=== PATIENT | male | born 2005 | race Caucasian/White ===

== ENCOUNTER 2025-06-05 08:46 | Outpatient (AMB) | payer OTHER, MEDICARE, MEDICAID, SELFPAY ==
--- NOTE | 2025-06-05 08:47 | MHC.PC.OV ---
Vital Signs 06/05/25 09:05 06/05/25 09:47 Height 5 ft 9 in Weight 371 lb 7.662 oz BMI 54.9 BP 124/72 Blood Pressure Location Lt brachial Position Sitting Respiration 12 Pulse 103 H 88 Pulse Source Pulse Oximeter Auscultation Temp 96.8 F Temp Source Oral Pulse Oximetry (%) 96 Oxygen Delivery Method Room Air Intake Visit Reasons: Autism/CPE Intake Note: New patient to establish care and cpe. Managing Manager Required: No Allergies sulfamethoxazole (From Bactrim) Allergy (Severe, Verified 06/05/25 09:28) Hives trimethoprim (From Bactrim) Allergy (Severe, Verified 06/05/25 09:28) Hives Medication List - Last Reviewed 06/05/25 by Hazel Anaya MA aripiprazole (Abilify) 5 mg PO DAILY clonidine HCl 0.2 mg PO BEDTIME clonidine HCl 0.3 mg PO BEDTIME hydroxyzine pamoate 100 mg PO BID PRN lorazepam 0.5 mg PO BID PRN methylphenidate HCl ER 72 mg PO QAM omeprazole 20 mg PO DAILY oxcarbazepine 600 mg PO BID oxcarbazepine 300 mg PO BID risperidone 1 mg PO BEDTIME trazodone 300 mg PO BEDTIME venlafaxine ER 75 mg PO DAILY venlafaxine ER 150 mg PO DAILY venlafaxine ER (Effexor XR) 37.5 mg PO DAILY Tobacco use date assessed: 06/05/25 Dental Screening Dental Screen Date: 06/05/25 Did you have a dental visit in the last 12 months?: Yes Did you have a dental problem in the last 6 months where you did not have access to dental care?: No Was dental information given to patient?: Patient has dentist HPI HPI Comments History of Present Illness Details 19 y/o M with autism, ELISHA, ADHD,obesity, HLD, Mild intermittent asthma, Tic disorder, Hyperinsulinemia, GERD, obesity s/p s/p R labral tear surgery Fhx: Mom ELISHA, MDD, DAd DM, HLD HTN, Brother ELISHA, MDD, MGF/MGM premature heart dz; MGM lung ca Social: goes to [employer] in [place] 3 days a week; lives w/ Mom, Dad and oldest son; likes video games and movies Health Maintenance Tdap 06/05/25 Flu 06/05/25 Specialist: Optho wears glasses Counselor and prescriber Here today to [facility] care & for CPE Pediatric records rec'd and reviewed. Here with Mom, [facility] bothering him. 06/28/25 eye doc appt Dry skin of bilat feet. Bilat foot pain Obesity - was seeing specialists but no longer followed; walking ELISHA/MDD/ADHD/Autism: PCP is not prescribing any of his meds; [facility] is managing all of these. GERD well controlled on PPI ASthma well controlled on prn RED Social History - Resides with father and eldest brother - Attends a day program, [employer] in [place], three days a week, which includes activities such as swimming and exercise. - Involved in walking therapy and has achieved long-distance walking with a therapist. - Reports dietary modifications that include increased fruit intake and significant reduction in ice cream and chip consumption. Health Maintenance - Influenza vaccine administered during the visit - Tetanus shot updated during the visit - Patient informed of [facility] use for appointment scheduling and communication Review of Systems - Eyes: Reports discomfort and pain in left eye - Dermatological: Reports burning sensation and thickened skin on feet - Musculoskeletal: Reports right shoulder discomfort but reassured by metallic implant - Neurological: Denies current seizures but has a history of tic disorder - Allergic/Immunologic: Allergy to Bactrim with hives reaction previously noted - Urinary: Reports sensation of prolonged urination Physical Exam General: Well developed, well nourished, in no acute distress. Appears stated age. Head: Normocephalic, atraumatic. Eyes:Pupils are equal, round and reactive to light and accommodation. Conjunctivae are clear. Scleras nonicteric bilat. Vision grossly normal. Glasses. Tearing of L eye, he could not tolerate exam so not able to assess. Ears: TMs clear AU, EACS WNL Nose: Patent, without discharge. Neck: No carotid bruit bilat. Supple, no adenopathy or thyromegaly. Breast: Edu on SBE Lungs: Clear to auscultation bilaterally. No rales, rhonchi or wheeze noted. Good air flow in all linares. Heart: Regular rate and rhythm. No murmurs, click, rubs or gallops are noted. Abdomen: Bowel sounds present in all quadrants. The abdomen is soft, nontender, with no masses or organomegaly noted. No hernias are noted. : Deferred. Reviewed KATERYNA & recommendations Pulses: Peripheral pulses are equal and palpable bilaterally. Extremities: No clubbing, cyanosis nor edema is noted. Skin on feet is thickened, possibly due to sitting cross-legged. Neurologic: Gait and station normal. Cranial Nerves 2-12 intact. Motor strength grossly symmetrical and intact. No sensory loss. Balance normal. Skin: No rashes, ulcers, or lesions noted. Turgor is good. Skin color is good. Hair and nails are without abnormalities. Thickened to lateral part of foot bilat Psych: Normal eye contact, affect and mood appropriate, and normal interactions. Patient is alert and appropriate to context. Results Pending Discussion Notes I discussed the likely diagnosis of a corneal scratch on the left eye, requiring prompt ophthalmological evaluation for further assessment and management. We addressed the chronic issues of obesity by reinforcing healthy dietary habits and encouraging continued physical activity. Lac-hydryin lotion was recommended for foot care to address the thickened skin ({mom has on hand @ home). Vaccinations updated today include the Influenza vaccine and Tetanus shot. The patient was educated about using the [facility] for communication and follow-up appointments. Additionally, we discussed the historical allergy to Bactrim and reinforced avoidance. Consent was obtained for today's vaccines and non-fasting lab work. Patient was given time to ask questions. All questions were answered to their satisfaction. Assessment and Plan 1. Eye Discomfort, L - recommend ophthalmology follow-up. Call to move up appt 2. Skin Condition of the Feet - Use Lac hydrin lotion BID; consider dermatology if necessary. 3. Obesity and Activity - Encourage healthy diet and exercise. 4.ELISHA, MDD, ADHD, Autism Cont care w/ counselor and prescriber 5. HM: Tdap, flu and labs today Patient Instructions - Drink plenty of water every day. - Use lachydrin lotion on your feet twice a day. - Eat more fruits and less junk food like chips and ice cream. - Walk regularly as exercise. - Contact your eye doctor soon to check your left eye. - Always tell doctors about your allergy to Bactrim. - Get your blood work done today before leaving. - RTO 1 year CPE sooner as needed. Consent Patient was informed and verbally consented to the use of an ambient scribe for clinic note documentation during this visit. An additional 30 minutes was spent addressing the problem(s) noted at todays visit. This includes time spent before the visit reviewing the chart, time spent during the visit, and time spent after the visit on documentation reviewing laboratory results, diagnostic imaging, medications, performing a medically necessary evaluation, counseling on diagnoses, care coordination, ordering appropriate tests, ordering appropriate medications, review of tests performed by other providers, reporting test results with the patient, communication with other healthcare providers. [facility] Medical History (Updated 06/05/25 @ 09:53 by Merissa Lake [facility]) Anxiety and depression Surgical History (Updated 06/05/25 @ 08:49 [facility] Status post labral repair of shoulder Family History (Updated 06/05/25 @ 09:17 by Hazel Anaya MA) Maternal Aunt No problems noted. Mother Asthma HTN (hypertension) High cholesterol Father HTN (hypertension) High cholesterol Diabetes Cardiovascular disease Maternal Grandfather Diabetes Social History (Updated 06/05/25 @ 09:10 by Hazel Anaya MA) Household Members: Family Household Members Other:: mother, father and brothers Both parents involved: Yes Caregiver staying overnight: No Housing: House Are you a primary neonatal intensive care unit nurse to a significant other at home: No Do you presently have visiting nurse or other home services: No 75 years or older and lives alone: No Alcohol intake: never Patient Tobacco Use Status: Never used Tobacco e-Cigarette/Vaping Use: Never Used Second Hand Smoke Exposure: No service: No Current occupational status: disabled Cognitive needs: No Hearing needs: No Vision needs: Yes (wear glasses) Questionnaire PHQ-9 Over the last 2 weeks, how often have you been bothered by any of the following problems? 1. Little interest or pleasure in doing things: not at all 2. Feeling down, depressed, or hopeless: not at all 3. Trouble falling or staying asleep, or sleeping too much: not at all 4. Feeling tired or having little energy: not at all 5. Poor appetite or overeating: not at all 6. Feeling bad about yourself - or that you are a failure or have let yourself or your family down: not at all 7. Trouble concentrating on things, such as reading the newspaper or watching television: not at all 8. Moving or speaking so slowly that other people could have noticed. Or the opposite - being so fidgety or restless that you have been moving around a lot more than usual: not at all 9. Thoughts that you would be better off or of hurting yourself in some way: not at all Total score: 0 Depression Screening Interpretation: Negative Depression Screening Done: Yes 54209 - PHQ-9 Billing: Yes Source: Developed by Drs. Ricardo Helton, Marisol Perez, Adam Kaminski and colleagues, with an educational taryn from [employer]. Thrive Questionnaire Date Thrive assessed: 06/05/25 I am a: Parent/Caregiver What is your living situation today?: I have a steady place to live Within the past 12 months, did the food you bought not last and you didn't have the money to get more?: Never true Within the past 12 months, did you worry whether your food would run out before you got money to buy more?: Never true Do you have trouble paying for medicines?: No Do you have trouble getting transportation to medical appointments?: Yes Do you have trouble paying your heating and electricity bill?: No Do you have trouble taking care of your child, family member or friend?: No Do you have trouble with day-to-day activities such as bathing, preparing meals, shopping, managing finances, etc.?: Yes Are you currently unemployed and looking for a job?: No Are you interested in more education?: No Please select the resources that you would like help with: Transportation Currently or been in a relationship where the following occur: No concerns reported THRIVE Score: 1 AUDIT C Alcohol Use Questionnaire (AUDIT-C) 1. How often do you have a drink containing alcohol?: Never 3. How often do you have six or more drinks on one occasion?: Never Total Score: 0 Score Reviewed/Action Taken: Yes ELISHA-7 AMB Questionnaire ELISHA-7 Date ELISHA - 7 assessed: 06/05/25 Feeling nervous, anxious, or on edge: 3 = Nearly every day Not being able to stop or control worryin = Nearly every day Worrying too much about different things: 3 = Nearly every day Trouble relaxin = Nearly every day Being so restless that it is hard to sit still: 0 = Not at all Becoming easily annoyed or irritable: 3 = Nearly every day Feeling afraid as if something awful might happen: 3 = Nearly every day Total ELISHA-7 score (0-4 normal; 5-9 mild; 10-14 moderate; 15-21 severe): 18 Source: Developed by Drs. Ricardo Helton, Marisol Perez, Adam Kaminski and colleagues, with an educational taryn from [employer]. ELISHA-7 Assessment Billing ELISHA-7 Assessment Tool: ELISHA-7 Assessment 80330 ACT Questionnaire In the past 4 weeks, how much of the time did your asthma keep you from getting as much done at work, school or at home?: None of the time During the past 4 weeks, how often have you had shortness of breath?: Not at all During the past 4 weeks, how often did your asthma symptoms wake you up at night or earlier than usual in the morning?: Not at all During the past 4 weeks, how often have you had to use your rescue inhaler or nebulizer medication?: Not at all How would you rate your asthma control during the past 4 weeks?: Completely controlled ACT Interpretation: Negative Score: 25 Physical exam (Primary Care) Vital Signs: Last Vital Signs Temp 96.8 F 06/05/25 09:05 Pulse 88 06/05/25 09:47 Resp 12 06/05/25 09:05 BP 124/72 06/05/25 09:05 Pulse Ox 96 06/05/25 09:05 Oxygen Delivery Method Room Air 06/05/25 09:05 BMI result Body Mass Index 54.9 BMI Assessment/Plan discussion: High BMI High, discussed plan: lifestyle Tobacco/Smoking Status: Tobacco use Status Tobacco use date assessed 06/05/25 06/05/25 09:00 Patient Tobacco Use Status Never used Tobacco 06/05/25 09:10 e-Cigarette/Vaping Use Never Used 06/05/25 09:10 PHQ-9: PHQ-9 Score PHQ-9: Total score 0 06/05/25 09:32 Depression Screening Interpretation: Negative Thrive Assessment: Date of Thrive Assessment Date Thrive assessed 06/05/25 06/05/25 09:00 Currently or been in a relationship where the following occur: No concerns reported Coding Level of Care Code New Pt Level 3 (91345) New Pt Prev Care 18-39yr(14211 Diagnoses Encounter to establish care with new provider Z76.89 Autism F84.0 ELISHA (generalized anxiety disorder) F41.1 Attention deficit hyperactivity disorder (ADHD), predominantly hyperactive type F90.1 Attention deficit-hyperactivity disorder type: predominantly hyperactive Mixed hyperlipidemia E78.2 Hyperlipidemia type: mixed hyperlipidemia Mild intermittent asthma in adult without complication J45.20 Tic disorder F95.9 Hyperinsulinemia E16.1 Gastroesophageal reflux disease without esophagitis K21.9 Esophagitis presence: without esophagitis Influenza vaccination administered at current visit Z23 Need for Tdap vaccination Z23 Laboratory exam ordered as part of routine general medical examination Z00.00 BMI 50.0-59.9, adult Z68.43 Irritation of left eye H57.89 Encounter for general adult medical examination without abnormal findings Z00.00 Additional Codes Asthma Control Questionnaire - ACT Interpretation: Negative ([id number]) ELISHA-7 Assessment Billing - ELISHA-7 Assessment Tool: ELISHA-7 Assessment 77773 ([id number]) PHQ-9 - 30326 - PHQ-9 Billing: Yes ([id number]) Assessment & Plan Assessment & Plan (1) Encounter to establish care with new provider: Code(s): Z76.89 - Persons encountering health services in other specified circumstances (2) Autism: Code(s): F84.0 - Autistic disorder Category: Medical (3) ELISHA (generalized anxiety disorder): Code(s): F41.1 - Generalized anxiety disorder Category: Medical (4) ADHD: Code(s): F90.9 - Attention-deficit hyperactivity disorder, unspecified type Category: Medical Qualifiers: Attention deficit-hyperactivity disorder type: predominantly hyperactive Qualified Code(s): F90.1 - Attention-deficit hyperactivity disorder, predominantly hyperactive type (5) HLD (hyperlipidemia): Code(s): E78.5 - Hyperlipidemia, unspecified Category: Medical Qualifiers: Hyperlipidemia type: mixed hyperlipidemia Qualified Code(s): E78.2 - Mixed hyperlipidemia (6) Mild intermittent asthma in adult without complication: Code(s): J45.20 - Mild intermittent asthma, uncomplicated Category: Medical (7) Tic disorder: Code(s): F95.9 - Tic disorder, unspecified Category: Medical (8) Hyperinsulinemia: Code(s): E16.1 - Other hypoglycemia Category: Medical (9) GERD (gastroesophageal reflux disease): Code(s): K21.9 - Gastro-esophageal reflux disease without esophagitis Category: Medical Qualifiers: Esophagitis presence: without esophagitis Qualified Code(s): K21.9 - Gastro-esophageal reflux disease without esophagitis (10) Influenza vaccination administered at current visit: Code(s): Z23 - Encounter for immunization Category: Medical (11) Need for Tdap vaccination: Code(s): Z23 - Encounter for immunization Category: Medical (12) Laboratory exam ordered as part of routine general medical examination: Code(s): Z00.00 - Encounter for general adult medical examination without abnormal findings Category: Medical (13) BMI 50.0-59.9, adult: Code(s): Z68.43 - Body mass index [BMI] 50.0-59.9, adult Category: Medical (14) Irritation of left eye: Code(s): H57.89 - Other specified disorders of eye and adnexa (15) Encounter for general adult medical examination without abnormal findings: Onset Date: ~06/05/25 Code(s): Z00.00 - Encounter for general adult medical examination without abnormal findings Category: Medical Plan . Orders: Orders Comprehensive Met. Panel Today E78.5 - Hyperlipidemia, unspecified, Z00.00 - Encounter for general adult medical examination without abnormal findings, Z68.43 - Body mass index [BMI] 50.0-59.9, adult Hemoglobin A1c Today E78.5 - Hyperlipidemia, unspecified, Z00.00 - Encounter for general adult medical examination without abnormal findings, Z68.43 - Body mass index [BMI] 50.0-59.9, adult Lipid Panel Today E78.5 - Hyperlipidemia, unspecified, Z00.00 - Encounter for general adult medical examination without abnormal findings, Z68.43 - Body mass index [BMI] 50.0-59.9, adult TSH reflex Free T4 Today E78.5 - Hyperlipidemia, unspecified, Z00.00 - Encounter for general adult medical examination without abnormal findings, Z68.43 - Body mass index [BMI] 50.0-59.9, adult Vitamin B12 and Folate Today E78.5 - Hyperlipidemia, unspecified, Z00.00 - Encounter for general adult medical examination without abnormal findings, Z68.43 - Body mass index [BMI] 50.0-59.9, adult Vitamin D 25-OH Total Today E78.5 - Hyperlipidemia, unspecified, Z00.00 - Encounter for general adult medical examination without abnormal findings, Z68.43 - Body mass index [BMI] 50.0-59.9, adult Complete Blood Count no Diff Today E78.5 - Hyperlipidemia, unspecified, Z00.00 - Encounter for general adult medical examination without abnormal findings, Z68.43 - Body mass index [BMI] 50.0-59.9, adult Microalbumin, Random (w Creat) Today E78.5 - Hyperlipidemia, unspecified, Z00.00 - Encounter for general adult medical examination without abnormal findings, Z68.43 - Body mass index [BMI] 50.0-59.9, adult TDaP Immunization Today Z23 - Encounter for immunization Influenza 3467-0012 Immunization Today Z23 - Encounter for immunization Medications: New Boostrix Tdap (diphth,pertus(acell),tetanus) 0.5 mL IM ONCE 0.5 mL 0RF NS Z23 - Encounter for immunization Fluarix 5621-9930 (PF) (flu vac ts (6mos up)-PF) 0.5 mL IM ONCE 0.5 mL 0RF NS Z23 - Encounter for immunization Patient Instructions: Health screenings for men You should visit your health care provider regularly, even if you feel healthy. The purpose of these visits is to: Screen for medical issues Assess your risk for future medical problems Encourage a healthy lifestyle Update vaccinations and other preventive care services Help you get to know your provider in case of an illness Information Even if you feel fine, you should still see your provider for regular checkups. These visits can help you avoid problems in the future. For example, the only way to find out if you have high blood pressure is to have it checked regularly. High blood sugar and high cholesterol level also may not have any symptoms in the early stages. Simple blood tests can check for these conditions. There are specific times when you should see your provider or receive specific health screenings. The [place] Preventive Services Task Force publishes a list of recommended screenings. Below are screening guidelines for men ages 40 to 64. BLOOD PRESSURE SCREENING Have your blood pressure checked at least once every year. Watch for blood pressure screenings in your area. Ask your provider if you can stop in to have your blood pressure checked. Ask your provider if you need your blood pressure checked more often if: You have diabetes, heart disease, kidney problems, or are overweight or have certain other health conditions You have a first-degree relative with high blood pressure You are Black Your blood pressure top number is from 120 to 129 mm Hg, or the bottom number is from 70 to 79 mm Hg If the top number is 130 mm Hg or greater or the bottom number is 80 mm Hg or greater, this is considered stage 1 hypertension. Schedule an appointment with your provider to learn how you can lower your blood pressure. Effects of age on blood pressure CHOLESTEROL SCREENING Cholesterol screening should begin at age 35 for men with no known risk factors for coronary heart disease. Repeat cholesterol screening should take place: Every 5 years for men with normal cholesterol levels More often if changes occur in lifestyle (including weight gain and diet) More often if you have diabetes, heart disease, kidney problems, or certain other conditions COLORECTAL CANCER SCREENING If you are under age 45, talk to your provider about getting screened. You may need to be screened if you have a strong family history of colon cancer or polyps. Screening may also be considered if you have risk factors such as a history of inflammatory bowel disease or polyps. If you are age 45 to 75, you should be screened for colorectal cancer. There are several screening tests available: A stool-based fecal occult blood (gFOBT) or fecal immunochemical test (FIT) every year A stool sDNA test every 1 to 3 years Flexible sigmoidoscopy every 5 years or every 10 years with stool testing FIT done every year CT colonography (virtual colonoscopy) every 5 years Colonoscopy every 10 years You may need a colonoscopy more often if you have risk factors for colorectal cancer, such as: Ulcerative colitis A personal or family history of colorectal cancer A history of growths in your colon called adenomatous polyps DENTAL EXAM Go to the dentist once or twice every year for an exam and cleaning. Your dentist will evaluate if you have a need for more frequent visits. DIABETES SCREENING All adults who do not have risk factors for diabetes should be screened starting at age 35 and repeated every 3 years. If you have other risk factors for diabetes, such as a first degree relative with diabetes, overweight or obesity, high blood pressure, prediabetes, or a history of heart disease, you may be tested more often. If you are overweight and have other risk factors, such as high blood pressure and are planning to become , screening is recommended. EYE EXAM Have an eye exam every 2 to 4 years ages 40 to 54 and every 1 to 3 years ages 55 to 64. Your provider may recommend more frequent eye exams if you have vision problems or glaucoma risk. Have an eye exam that includes an examination of your retina (back of your eye) at least every year if you have diabetes. IMMUNIZATIONS Commonly needed vaccines include: Flu shot: get one every year COVID-19 vaccine: ask your provider what is best for you Tetanus-diphtheria and acellular pertussis (Tdap) vaccine: have as one of your tetanus-diphtheria vaccines if you did not receive it as an adolescent Tetanus-diphtheria: have a booster (or Tdap) every 10 years Varicella vaccine: receive 2 doses if you never had chickenpox or the varicella vaccine and were born in 1979 or after Hepatitis B vaccine: receive 2, 3, or 4 doses, depending on your exact circumstances, if you did not receive these as a child or adolescent, until age 59 Shingles (herpes zoster) vaccine: at or after age 50 Ask your provider if you should receive other immunizations, especially if you have certain medical conditions, such as diabetes or are at increased risk for some diseases such as pneumonia. INFECTIOUS DISEASE SCREENING Screening for hepatitis C: all adults ages 18 to 79 should get a one-time test for hepatitis C. Screening for human immunodeficiency virus (HIV): all people ages 15 to 65 should get a one-time test for HIV. Depending on your lifestyle and medical history, you may need to be screened for infections such as syphilis, chlamydia, and other infections. LUNG CANCER SCREENING You should have an annual screening for lung cancer with low-dose computed tomography (LDCT) if: You are age 50 to 80 years AND You have a 20 pack-year smoking history AND You currently smoke or have quit within the past 15 years OSTEOPOROSIS SCREENING If you are age 50 to 64 and have risk factors for osteoporosis, you should discuss screening with your provider. Risk factors can include long-term steroid use, low body weight, smoking, heavy alcohol use, having a fracture after age 50, or a family history of hip fracture or osteoporosis. Osteoporosis PHYSICAL EXAM All adults should visit their provider from time to time, even if they are healthy. The purpose of these visits is to: Screen for diseases Assess risk of future medical problems Encourage a healthy lifestyle Update vaccinations and other preventive care services Maintain a relationship with a provider in case of an illness Your height, weight, and body mass index (BMI) should be checked at every exam. During your exam, your provider may ask you about: Depression and anxiety Diet and exercise Alcohol and tobacco use Safety, such as use of seat belts and smoke detectors Your medicines and risk for interactions PROSTATE CANCER SCREENING If you're 55 through 69 years old, before having the test, talk to your provider about the pros and cons of having a PSA test. Ask about: Whether screening decreases your chance of dying from prostate cancer. Whether there is any harm from prostate cancer screening, such as side effects from testing or overtreatment of cancer when discovered. Whether you have a higher risk of prostate cancer than others. If you are age 55 or younger, screening is not generally recommended. You should talk with your provider about if you have a higher risk for prostate cancer. Risk factors include: Having a family history of prostate cancer (especially a brother or father) Being If you choose to be tested, the PSA blood test is repeated over time (yearly or less often), though the best frequency is not known. Prostate examinations are no longer routinely done on men with no symptoms. Prostate cancer SKIN EXAM Your provider may check your skin for signs of skin cancer, especially if you're at high risk. People at high risk include those who have had skin cancer before, have close relatives with skin cancer, or have a weakened immune system. TESTICULAR EXAM The [place] Preventive Services Task Force (USPSTF) now recommends against performing testicular self-exams. Doing testicular self-exams has been shown to have little to no benefit. Walk-In Care (Urgent Care): We Make it Easy Walk-in for urgent medical issues such as: ? Seasonal Allergies ? Insect Bites ? Cough ? Diarrhea ? Acute Asthma Attacks ? Back, Knee or Joint Pain ? Ear Infection ? Fever without a Rash ? Headaches ? Nausea ? [place] [facility], Rash or Skin Irritation ? Sore Throat ? Sports Physicals ? Vomiting Most insurances are accepted. Patients do not need to be part of the [facility] to seek care at the walk-in clinic. Locations [address], [place] Open Wednesday through Wednesday 8am-5pm *Hours may vary due to staffing availability. To confirm Walk-In Care hours please call. Deny Parminder Delgado, [place] [address] ? [phone] [facility] in [place] provides services to ages 18 and over. Open Wednesday-Wednesday: 7 a.m. to 5 p.m. and Wednesday: 9 a.m. to 3 p.m.* *Hours may vary due to staffing availability. To confirm Walk-In Care hours in [place], please call [phone]. [address] [place] [address] ? [phone] [facility] in [place] provides services to ages 12 and over. Open Wednesday-Wednesday: 8 a.m. to 5 p.m. Hours may vary due to staffing availability. To confirm Walk-In Care hours in [place], please call [phone]. LABORATORY SERVICES: [facility] Lab ? Primary Location [address] [place] [address] Wednesday through Wednesday 6:00 AM ? 5:00 PM Wednesday 7:00 AM ? 11:00 AM* [phone] The [facility] Lab is centrally located near the front entrance of the [facility] for easy outpatient access. Convenient parking is provided for outpatients. *Hours may vary due to staffing availability. To confirm Laboratory hours for any location, please call [phone]. Offsite Location For your convenience, we offer offsite laboratory draw stations at the following locations: [address] [place] [address] ? [address], [address] Wednesday through Wednesday 7:30 AM ? 1:00 PM* [phone] *Hours may vary due to staffing availability. To confirm Laboratory hours for any location, please call [phone]. [place] ? [address] Wednesday through Wednesday 6:00 AM ? 3:30 PM* Wednesday 6:30 AM ? 3 PM* [phone] *Hours may vary due to staffing availability. To confirm Laboratory hours for any location, please call [phone] [place] [address] Wednesday through Wednesday 7:30 AM ? 4:00 PM* [phone] *Hours may vary due to staffing availability. To confirm Laboratory hours for any location, please call [phone] [place] [address] Wednesday through Thursday 9:00 AM ? 4:00 PM* *Hours may vary due to staffing availability. To confirm Laboratory hours for any location, please call [phone]. Appointments are not necessary. Walk-ins are welcome. Like all the departments throughout the [facility], our Lab undergoes frequent reviews to ensure the quality and accuracy of test results, and our staff takes special pride in its status as a nationally accredited facility. Patient Portal: [facility] ONE PATIENT. ONE RECORD. BETTER CARE. [facility] has a fully integrated, cutting-edge mobile electronic health information system that has revolutionized the way we care for our patients and manage our organization. This system improves communication and coordination enabling us to provide safe, higher-quality care, and an overall positive experience for staff and patients. Our first priority, as always, is to deliver the highest quality care possible. The system is running in the background supporting that priority. This portal is for all [facility] services and practices. If you are experiencing any technical difficulties with enrolling or logging into the Patient Portal please complete the [facility] Patient Portal Technical Support Form. [facility] now offers a new secure on-line interactive tool for patients to review their health information ? ?Patient Portal. This interactive web portal will enable patients and their families to take an active role in their care by providing easy, secure access to their health information via the internet. The Patient Portal provides patients with instant access to their health information, including laboratory results, medications, allergies, demographic information, visit history, and more. In addition to managing their own care, parents and health care proxies with authorized consent will appreciate the ability to access the records of those individuals for whom they provide care. Please note: if you wish to gain access (Proxy) to another patient?s portal, you will be required to come to the Medical Records Department in person at [facility]. Both the patient giving proxy access and the proxy will need to provide photo identification and complete the appropriate authorization. The Patient Portal also allows track their appointments online. The [facility] Patient Portal also saves patients time by allowing them to submit updates to their demographic and contact information prior to their visits. Portal email notifications will also alert patients to any new activity on their portal, such as test results and new appointments. In order to initially enroll in the [facility] Patient Portal, you will need to enter some required information including the following: your [facility] Medical Record number your personal home email address name date of Please note: In order to enroll in the [facility] Patient Portal, we need to have your email address on file in your electronic medical record. ?The email address needs to be specific for one person (yourself) in order for your Portal enrollment to be successful. ?You can update your email address in person with our Registration staff when you are registering for a hospital visit. ?Otherwise, you will need to come to the Health Information Management (Medical Records) Department at [facility]. ?We are open from Wednesday ? Wednesday from 7:30 a.m. ? 4:30 p.m. ?You will be required to present a photo id. Once you have successfully enrolled in the Patient Portal, you will receive a one-time user id and password for the Portal, sent to your email address. ?This will allow you to log into the Patient Portal within 99 hrs and reset your own logon id and password, and define personal security questions. ?Once your permanent login and password have been set, you can log into the [facility] Patient Portal at any time via the blue button above or from the Portal Logon button on any page of the [facility] website. [facility] encourage all of our patients to enroll in Patient Portal as it presents a valuable opportunity for patients and their families to actively participate in their care and stay healthy Welcome to [facility]. ?We look forward to working with you.
[2025-06-05 09:05] VITALS: BP 124/72; PULSE 103; RESP 12; TEMP 36; O2SAT 96; BMI 54.9
--- OUTSIDE RECORDS SUMMARY | 2025-06-05 09:17 | XMS_ITS | Clinical Summary ---
Author Organization [facility] Address [address] [place], [place] [address] Phone Care Team Providers Care Merchandise Planner Name Role Phone Unavailable Primary Care Provider Unavailabl e Allergies Active Allergy Reactions Criticality Noted Date Comments Sulfamethoxazole-Trimethoprim Rash Low Medications methylphenidate 54 MG CR tablet Take 54 mg by mouth once daily. 0 06/11/2018 Active OXcarbazepine 300 MG tablet TAKE 1&1/2 TABLET BY MOUTH TWICE A DAY 3 06/09/2018 Active traZODone 100 MG tablet TAKE 2 TABLETS BY MOUTH EVERY DAY AT BEDTIME 0 06/01/2018 Active Multiple Vitamins-Mineral s (MULTIVITAMIN ADULT PO) Take 1 tablet by mouth daily. Active venlafaxine XR 150 MG 24 hr capsule Take by mouth daily in the morning. 02/10/2022 Active ARIPiprazole 5 MG tablet Take 20 mg by mouth once daily. 05/28/2022 Active metFORMIN 500 MG tablet Take 500 mg by mouth once daily. 06/18/2022 Active LORazepam 1 MG tablet Take 1 mg by mouth 2 (two) times a day as needed. 06/18/2022 Active omeprazole 20 MG delayed-release capsuleIndicatio ns:Gastroesophag eal reflux disease without esophagitis TAKE 1 CAPSULE BY MOUTH 1 HOUR BEFORE EATING ONCE A DAY 30 capsule 11/11/2022 Active Active Problems Problem Noted Date Diagnosed Date Anxiety 02/19/2016 Assessment & Plan (02/15/2024 3:41 PM EDT): Follow up with med provider Assessment & Plan (09/14/2018 4:12 PM EST): Sees psychiatrist every 3 months manages his meds. Kym Bryant. In home counseling 4 days a week on ADL and responsibility. 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 02/2019: did not go for BMI labs ordered at time of [facility] Assessment & Plan (02/15/2024 3:46 PM EDT): Work on diet and exercise. Mild intermittent asthma 01/16/2016 Assessment & Plan (02/15/2024 3:45 PM EDT): Under good control. Assessment & Plan (09/14/2018 4:13 PM EST): Viral triggers Autism spectrum disorder 01/16/2016 Tic disorder, unspecified 04/26/2012 Attention deficit hyperactivity disorder (ADHD) 03/24/2011 Assessment & Plan (02/15/2024 3:46 PM EDT): Follow up with med provider. Resolved Problems Problem Noted Date Diagnosed Date Resolved Date Mood disorder 02/19/2016 09/14/2018 Encounters Date Type Department Care Team Description 05/18/2025 [facility] [address] [address] Indira Page [place] Release of Records from Last 3 Months Immunizations Immunization Administration Dates Next Due DTaP 11/16/2008, 5,07/09/2004,03/28,01/07/2004 HPV Vaccine 9 Valent 01/16/2016 HPV, Quadrivalent 02/28/2015,12/29/2014 Hep A, ped/adol 09/14/2018,09/10/2017 Hep B, ped/adol 07/09/2004,02/08/2004,2003 Hib (PRP-T) 01/21/2005, 4,03/28/2004,01/06 IPV 11/16/2008, 4,03/28/2004,01/06 Influenza 07/01/2007 Influenza, injectable, quadrivalent 09/10/2017,1 ,06/26/2011 Influenza, injectable, quadr ivalent, preservative free 06/22/2022,06/19/2020,09/05/2018 MMR 11/03/2007,01/14/2005 Meningococcal B Bexsero 02/15/2024,02/13/2022 Meningococcal Conj (Menactra) MCV4P 04/12/2020,0 12/29/2014 Pneumococcal Conjugate 01/21/2005,2003,03/28/2004,01/06 Tdap 12/29/2014 Varicella 11/03/2007,01/14/2005 Family History Medical History Relation Name Comments Anxiety disorder Brother Depression Brother Diabetes Father Hyperlipidemia Father Hypertension Father Heart disease (Premature) Maternal Grandfather Lung cancer Maternal Grandmother Anxiety disorder Mother Depression Mother Heart disease (Premature) Paternal Grandfather No Known Problems Paternal Grandmother Relation Name Status Comments Brother Alive Father Alive hyperlipidemia, DM, hypertension, obesity diagnosed with Hypertension, Hypercholesteremia, DMII WO CMP NT [facility] Father's Brother Alive DM diagnose d with DMII WO CMP NT [facility] Maternal Grandfather Alive heart d isease, quad bypass diagnosed with HEART DISEASE NOS Maternal Grandmother cancer, lung diagnosed with MALIGNANT NEOPLASM NOS Mother Alive anxiety and dep ression, overweight and mom has MS diagnosed with NONPSYCHOT BRAIN SYN NOS Other Siblings: older brother nadine now over 20 has had depression, anxiety, but is not working and is playing music. diagnosed with NONPSYCHOT BRAIN SYN NOS Paternal Grandfather Alive heart d isease diagnosed with HEART DISEASE NOS Paternal Grandmother Alive Social History Tobacco Use Types Packs/Day Years Used Date Smoking Tobacco: Never Smokeless Tobacco: Never Alcohol Use Standard Drinks/Week Comments No 0 (1 standard drink = 0.6 oz pur e alcohol) Hunger/Food Answer Date Recorded In the last 12 months, did y ou or your family ever eat less than you felt you should because there wasn't enough money for food? No 02/15/2024 Stable Housing Answer Date Recorded Are you worried that in the next 2 months you may not have stable housing? No 02/15/2024 Transportation Concerns Answer Date Rec orded In the last 12 months, have you or your family ever had to go without healthcare because you didn't have a way to get there? No 02/15/2024 Hazards in Home Answer Date Recorded Think about the place you li ve. Do you have problems with any of the following? Pests (mice or roaches), mold, no/not working smoke detectors, water leaks, no window guards. No 2023 Financing Utilities Answer Date Recorde d In the last 12 months, has t he electric, gas, oil, or water company threatened to shut off your services in your home? No 02/15/2024 Safety at Home Answer Date Recorded Are you or your family worried about feeling saf e in your home? No 02/15/2024 Outside Support Answer Date Recorded Do you feel that you need mo re support from other people or programs to help you care for yourself or your family? No 02/15/2024 Understanding Health Concerns Answer Da te Recorded Do you need help understandi ng your or your child's healthcare needs (diagnosis, medications, plan, etc.)? No 02/15/2024 Financing Health Concerns Answer Date R ecorded In the last 12 months, was t here a time when your child needed to see a doctor or get medications or supplies but could not because of cost? No 02/15/2024 Missing School or Work Answer Date Hector rded Did you or your child miss s chool or work because of a health problem that could have been avoided? No 02/15/2024 Child Education Answer Date Recorded Do you have concerns about y our/your child's learning or behavior in school, preschool, or daycare? No 02/15/2024 Sex and Gender Information Value Date Recorded Sex Assigned at Male 04/12/2020 2:24 PM EDT Legal Sex Male 6:13 PM EDT Gender Identity Male 04/12/2020 2:24 PM EDT Sexual Orientation Straight 02/13/2022 11 :33 AM EDT Last Filed Vital Signs Vital Sign Reading Time Taken Comments Blood Pressure 132/80 06/22/2022 2:21 PM EDT Pulse 80 07/26/2024 12:50 PM EST Temperature 36.4 C (97.5 F) 02/15/2024 3:18 PM EDT Respiratory Rate - - Oxygen Saturation 98% 07/26/2024 12:50 PM EST Inhaled Oxygen Concentration - - Weight 153 kg (336 lb 12.8 oz) 07/26/2024 12:50 PM EST Height 177.8 cm (5' 10 ) 02/15/2024 3:18 PM EDT Body Mass Index 48.33 02/15/2024 3:18 PM EDT Plan of Treatment Health Maintenance Due Date Last Done Comments Glucose/HbA1C 06/22/2022 09/22/2018, 09/06, 01/17/2016, Additional history exists LDL-C/Cholesterol 06/22/2022 09/22/2018, 01/17/2016 DTaP,Tdap,and Td Vaccines (7 - Td or Tdap) 12/29/2024 12/29/2014, 11/16/2008, 01/21/2005, Additional history exists Influenza Vaccines (#1) 2025 06/22/20, 06/19/2020, 09/05/2018, Additional history exists COVID-19 Vaccine (3 2024-2 6 season) 2025 02/08/2021, 01/18/2021 Hepatitis B Vaccines Completed 07/09/2004, 02/08/2004, 2003 HIB Vaccines Completed 01/21/2005, 11/2003, 03/28/2004, Additional history exists Pneumococcal Vaccine Completed 01/21/2005, 07/09/2004, 03/28/2004, Additional history exists MMR Vaccines Completed 11/03/2007, 01/14/2005 Varicella Vaccines Completed 11/03/2007, 01/14/2005 IPV Vaccines Completed 11/16/2008, 11/2003, 03/28/2004, Additional history exists HPV Vaccines Completed 01/16/2016, 02/05, 12/29/2014 Hepatitis A Vaccines Completed 09/14/2018, 09/10/19 18 Meningococcal Vaccine Completed 04/12/2020, 015 Men B Vaccine Completed 02/15/2024, 02/13/2022 Procedures * Due to [facility] law, this organization might not be sharing sensitive test results. Procedure Name Priority Date/Time Associated Diagnosis Comments LIPID PANEL Routine 09/22/2018 8:56 AM EST Encounter for routine child health examination with abnormal findings HEMOGLOBIN A1C Routine 09/22/2018 8:56 AM EST Encounter for routine child health examination with abnormal findings from Last 3 Months or Most Recently Relevant to Health Maintenance Results * Due to [place] [employer] law, this organization might not be sharing sensitive test results. * Hemoglobin A1c (09/22/2018 8:56 AM EST) Hemoglobin A1C 5.4 (4-6) % [facility] Comment: PEDIATRIC (<15 YRS.) REFERENCE RANGE: HEMOGLOBIN A1C(%) GLUCOSE CONTROL INDEX 6-7.3% EXCELLENT 7.3-8% GOOD 8-9% FAIR >9% POOR Hemoglobin (Hb) A1c testing is performed by [employer]-quant immunoassay. Any cause of shortened erythrocyte survival will reduce exposure of erythrocytes to glucose with a consequent decrease in Hb A1c (%). Testing performed or reported by [facility], a Service of [facility], [address] [place] [address] Marshall Hope MD, Linen Worker Blood 09/22/2018 8:56 AM EST 09/22/2018 8:58 AM EST Gretel Fajardo NP LAB BLOOD ORDERABLES Final Res ult [facility] * (ABNORMAL) Lipid panel (09/22/2018 8:56 AM EST) Cholesterol, Total 200(H) (<170) MG/DL [facility] HDL 34(L) (>45) MG/DL [facility] Non-HDL Cholesterol 166(H) (<120) MG/DL [facility] Comment: Testing performed or reported by [facility], a Service of [facility], [address] [place] [id number] Marshall Hope MD, Linen Worker Blood 09/22/2018 8:56 AM EST 09/22/2018 8:58 AM EST us Gretel Fajardo [facility] LAB BLOOD ORDERABLES Final Res ult [facility] from Last 3 Months or Most Recently Relevant to Health Maintenance Insurance NON PCC Member Subscriber Plan / Payer (Ef fective 2018-Present) Name:Bairon Sevilla Relation to Subscriber:Self Name:Bairon Sevilla Payer ID:Not on file Group ID:Not on file Type:Medicaid Address: [address] [place] [address] [place] [address] NON PCC
--- OUTSIDE RECORDS SUMMARY | 2025-06-05 09:17 | XMS_ITS | Encounter Summary ---
Author Organization [facility] Address [address] [place] [address] Phone Care Team Providers Care Gas Adjuster Name Role Phone Michel Collins MD Primary Care Provider [phone] Reason for Visit * Reason Comments Med Refill Encounter Details Date Type Department Care Team ([facility] st Contact Info) Description 09/08/2021 [facility]ill [facility] [address] [address] Michel Collins MD [address] [place] [id number] Gastroesophageal reflux disease without esophagitis Social History Tobacco Use Types Packs/Day Years Used Date Smoking Tobacco: Never Smokeless Tobacco: Never Alcohol Use Standard Drinks/Week Comments No 0 (1 standard drink = 0.6 oz pur e alcohol) Hunger/Food Answer Date Recorded In the last 12 months, did y ou or your family ever eat less than you felt you should because there wasn't enough money for food? No 04/12/2020 Stable Housing Answer Date Recorded Are you worried that in the next 2 months you may not have stable housing? No 04/12/2020 Transportation Concerns Answer Date Rec orded In the last 12 months, have you or your family ever had to go without healthcare because you didn't have a way to get there? No 04/12/2020 Hazards in Home Answer Date Recorded Think about the place you li ve. Do you have problems with any of the following? Pests (mice or roaches), mold, no/not working smoke detectors, water leaks, no window guards. No 2019 Financing Utilities Answer Date Recorde d In the last 12 months, has t he electric, gas, oil, or water company threatened to shut off your services in your home? No 04/12/2020 Safety at Home Answer Date Recorded Are you or your family worried about feeling saf e in your home? No 04/12/2020 Outside Support Answer Date Recorded Do you feel that you need mo re support from other people or programs to help you care for yourself or your family? No 04/12/2020 Understanding Health Concerns Answer Da te Recorded Do you need help understandi ng your or your child's healthcare needs (diagnosis, medications, plan, etc.)? No 04/12/2020 Financing Health Concerns Answer Date R ecorded In the last 12 months, was t here a time when your child needed to see a doctor or get medications or supplies but could not because of cost? No 04/12/2020 Missing School or Work Answer Date Hector rded Did you or your child miss s chool or work because of a health problem that could have been avoided? No 04/12/2020 Sex and Gender Information Value Date Recorded Sex Assigned at Male 04/12/2020 2:24 PM EDT Legal Sex Male 6:13 PM EDT Gender Identity Male 04/12/2020 2:24 PM EDT Sexual Orientation Straight 02/13/2022 11 :33 AM EDT documented as of this encounter Plan of Treatment Not on file documented as of this encounter Visit Diagnoses Diagnosis Gastroesophageal reflux disease without esophagitis Esophageal reflux documented in this encounter Care Teams Gas Adjuster Relationship Specialty Start Date End Date Michel Collins MD [facility] [place] [address] PCP - General Pediatrics 11/18/22 11/13/24 documented as of this encounter
--- OUTSIDE RECORDS SUMMARY | 2025-06-05 09:17 | XMS_ITS | Encounter Summary ---
Author Organization [facility] Address [address] [place] [address] Phone Care Team Providers Care Body Art Technician Name Role Phone Michel Collins MD Primary Care Provider [phone] Reason for Visit * Reason Comments Med Refill Encounter Details Date Type Department Care Team (Late st Contact Info) Description 04/15/2019 [facility]ill [facility] [address] [address] Gretel Fajardo, BULL [address] [place] [phone] Gastroesophageal reflux disease without esophagitis Social History Tobacco Use Types Packs/Day Years Used Date Smoking Tobacco: Never Smokeless Tobacco: Never Alcohol Use Standard Drinks/Week Comments No 0 (1 standard drink = 0.6 oz pur e alcohol) Sex and Gender Information Value Date Recorded Sex Assigned at Male 04/12/2020 2:24 PM EDT Legal Sex Male 6:13 PM EDT Gender Identity Male 04/12/2020 2:24 PM EDT Sexual Orientation Straight 02/13/2022 11 :33 AM EDT documented as of this encounter Miscellaneous Notes * Telephone Encounter - Laura Murillo MD - 04/17/2019 8:08 AM EDT Chart reviewed, rx sent as requested to pharmacy * Telephone Encounter - Antoinette Berry MA - 04/15/2019 9:15 AM EDT Request for refill on OMEPRAZOLE 20 MG delayed-release capsule via voicemail Last Refill- 03/22/19 Forward to Gretel for review and send to the pharmacy. PHARMACY VERIFIED. documented in this encounter Plan of Treatment Not on file documented as of this encounter Visit Diagnoses Diagnosis Gastroesophageal reflux disease without esophagitis Esophageal reflux documented in this encounter Care Teams Body Art Technician Relationship Specialty Start Date End Date Michel Collins MD [address] [place] [address] PCP - General Pediatrics 11/18/22 11/13/24 documented as of this encounter
--- OUTSIDE RECORDS SUMMARY | 2025-06-05 09:17 | XMS_ITS | Encounter Summary ---
Author Organization [facility] Address [address] [place] [address] Phone Care Team Providers Care Foreign Student Adviser Teacher Name Role Phone Michel Collins MD Primary Care Provider Encounter Details Date Type Department Care Team (Late st Contact Info) Description 01/23/2018 Conversion Encounter [facility] [address] [place] [address] Sher Spence MD Social History Tobacco Use Types Packs/Day Years Used Date Smoking Tobacco: Never Assessed Sex and Gender Information Value Date Recorded Sex Assigned at Male 04/12/2020 2:24 PM EDT Legal Sex Male 6:13 PM EDT Gender Identity Male 04/12/2020 2:24 PM EDT Sexual Orientation Straight 02/13/2022 11 :33 AM EDT documented as of this encounter Plan of Treatment Not on file documented as of this encounter Visit Diagnoses Not on filedocumented in this encounter Care Teams Foreign Student Adviser Teacher Relationship Specialty Start Date End Date Michel Collins MD [address] [place] [address] PCP - General Pediatrics 11/18/22 11/13/24 documented as of this encounter
[2025-06-05 09:47] VITALS: PULSE 88
== END 2025-06-05 09:56 | disposition home or self-care (01) ==
LOC: HO.HMCFM 08:46
PROVIDERS: PCP Nurse Practitioner Family; Visit Provider Nurse Practitioner Family
DX: Z00.00 Encounter for general adult medical examination without abnormal findings (principal); F84.0 Autistic disorder; F90.1 Attention-deficit hyperactivity disorder, predominantly hyperactive type; E78.2 Mixed hyperlipidemia; J45.20 Mild intermittent asthma, uncomplicated; F95.9 Tic disorder, unspecified; E16.1 Other hypoglycemia; K21.9 Gastro-esophageal reflux disease without esophagitis; Z23 Encounter for immunization; H57.89 Other specified disorders of eye and adnexa

== ENCOUNTER → 2025-06-05 08:46 | Outpatient (BNVA) | payer OTHER, MEDICARE, MEDICAID, SELFPAY | PROVIDERS: PCP Nurse Practitioner Family; Visit Provider Nurse Practitioner Family | DX: H57.12 Ocular pain, left eye (principal); E66.9 Obesity, unspecified; F41.1 Generalized anxiety disorder; F32.9 Major depressive disorder, single episode, unspecified; F90.9 Attention-deficit hyperactivity disorder, unspecified type; F84.0 Autistic disorder; F90.1 Attention-deficit hyperactivity disorder, predominantly hyperactive type; E78.2 Mixed hyperlipidemia; J45.20 Mild intermittent asthma, uncomplicated; F95.9 Tic disorder, unspecified; E16.1 Other hypoglycemia; K21.9 Gastro-esophageal reflux disease without esophagitis; Z23 Encounter for immunization; Z76.89 Persons encountering health services in other specified circumstances; Z68.43 Body mass index [BMI] 50.0-59.9, adult | CPT/HCPCS: 90471; 90472; 90656; 90715; 96127; 96160 ==

== ENCOUNTER 2025-09-05 08:33 | Outpatient (REF) | payer OTHER, MEDICAID, SELFPAY ==
--- OUTSIDE RECORDS SUMMARY | 2025-09-05 08:36 | XMS_ITS | Encounter Summary ---
Author Organization [facility] Address [address] [place] [address] Phone Care Team Providers Care Blister Pack Operator Name Role Phone Michel Collins MD Primary Care Provider Encounter Details Date Type Department Care Team (Late st Contact Info) Description 01/23/2018 Conversion Encounter [facility] [address] [place] [address] Sher Spence MD Social History Tobacco Use [...] on filedocumented in this encounter Care Teams Blister Pack Operator Relationship Specialty Start Date End Date Michel Collins MD [address] [place] [address] PCP - General Pediatrics 11/18/22 11/13/24 documented as of this encounter
--- OUTSIDE RECORDS SUMMARY | 2025-09-05 08:36 | XMS_ITS | Encounter Summary ---
Author Organization [facility] Address [address] [place] [phone] Phone Care Team Providers Care Script Manager Name Role Phone Michel Collins MD Primary Care Provider [phone] Reason for Visit * Reason Comments Med Refill Encounter Details Date Type Department Care Team ([facility] st Contact Info) Description 09/08/2021 [facility]ill [facility] [address] [address] Michel Collins MD [address] [place] [phone] Gastroesophageal reflux disease without esophagitis Social History [...] reflux documented in this encounter Care Teams Script Manager Relationship Specialty Start Date End Date Michel Collins MD 7 [facility] [place] [address] PCP - General Pediatrics 11/18/22 11/13/24 documented as of this encounter
--- OUTSIDE RECORDS SUMMARY | 2025-09-05 08:36 | XMS_ITS | Encounter Summary ---
Author Organization [facility] Address [address] [place], [place] [phone] Phone Care Team Providers Care Die Caster Name Role Phone Michel Collins MD Primary Care Provider [phone] Reason for Visit * Reason Comments Med Refill Encounter Details Date Type Department Care Team (Late st Contact Info) Description 04/15/2019 [facility] [address] [address] Gretel Fajardo, BULL [address] [place] [phone] Gastroesophageal reflux disease without esophagitis Social History [...] reflux documented in this encounter Care Teams Die Caster Relationship Specialty Start Date End Date Michel Collins MD [address] [place] [address] PCP - General Pediatrics 11/18/22 11/13/24 documented as of this encounter
--- OUTSIDE RECORDS SUMMARY | 2025-09-05 08:36 | XMS_ITS | Clinical Summary ---
Author Organization [facility] Address [address] [place], [place] [phone] Phone Care Team Providers Care Supply Chain Procurement Manager Name Role Phone Unavailable Primary Care Provider [...] responsibility. 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 02/2019: did not go for BMI labs ordered at time of [facility] Assessment & Plan (02/15/2024 3:46 PM EDT): [...] Date Resolved Date Mood disorder 02/19/2016 09/14/2018 Immunizations Immunization Administration Dates Next Due DTaP [...] 06/19/2020, 09/05/2018, Additional history exists COVID-19 Vaccine (2024-10 6 season) 2025 02/08/2021, 01/18/2021 Hepatitis B [...] Completed 02/15/2024, 02/13/2022 Procedures * Due to [place] state law, this organization might not be sharing [...] to Health Maintenance Results * Due to [place] state law, this organization might not be sharing sensitive test results. * Hemoglobin A1c (09/22/2018 8:56 AM EST) Hemoglobin A1C 5.4 (4-6) % [facility] Comment: PEDIATRIC (<15 YRS.) REFERENCE RANGE: HEMOGLOBIN A1C(%) GLUCOSE CONTROL INDEX 6-7.3% EXCELLENT 7.3-8% GOOD 8-9% FAIR >9% POOR Hemoglobin (Hb) A1c testing is performed by [employer]-quant immunoassay. Any cause of shortened erythrocyte survival will reduce exposure of erythrocytes to glucose with a consequent decrease in Hb A1c (%). Testing performed or reported by [facility], a Service of [facility], [address] [place] [address] Marshall Hope MD, Pipe Joints Supervisor Blood 09/22/2018 8:56 AM EST 09/22/2018 8:58 AM EST Gretel Fajardo NP LAB BLOOD ORDERABLES Final Res ult Performing Organization Address [facility] de Phone Number [facility] * (ABNORMAL) Lipid panel (09/22/2018 8:56 AM EST) Cholesterol, Total 200(H) (<170) MG/DL [facility] HDL 34(L) (>45) MG/DL [facility] Non-HDL Cholesterol 166(H) (<120) MG/DL [facility] Comment: Testing performed or reported by [facility], a Service of [facility], [address] [place] [id number] Marshall Hope MD, Pipe Joints Supervisor Blood 09/22/2018 8:56 AM EST 09/22/2018 8:58 AM EST Gretel Fajardo NP LAB BLOOD ORDERABLES Final Res ult Performing Organization Address [facility] Co de Phone Number [facility] from Last 3 Months or Most Recently Relevant to Health Maintenance [place] [address] [place] [address] NON PCC [facility] NON PCC
[2025-09-05 11:46] LABS: Hematocrit 48.9 % (42.0-52.0); Hemoglobin 16.1 g/dl (14.0-18.0); Mean Corpuscular HGB Conc 32.9 g/dl (31.0-36.0); Mean Corpuscular Hemoglobin 27.3 pg (27.0-33.0); Mean Corpuscular Volume 82.9 fL (80.0-98.0); NRBC Abs Auto 0.000 X10*3/uL (0.0-0.012); NRBC Pct Auto 0.0 /100WBC (0.0-0.2); Platelet Count 319 X10*3/uL (160-400); Red Blood Count 5.90 X10*6/uL (4.60-5.80); White Blood Count 10.3 X10*3/uL (4.8-10.8)
[2025-09-05 12:04] LABS: Alanine Aminotransferase 39 U/L (0-40); Albumin Level 4.8 g/dL (3.5-5.0); Alkaline Phosphatase 90 U/L (39-117); Anion Gap 11 (12-20); Aspartate Amino Transferase 27 U/L (5-37); Blood Urea Nitrogen 10 mg/dL (9-16); Calcium 9.8 mg/dL (8.4-10.2); Carbon Dioxide 24 mmol/L (22-29); Chloride 109 mmol/L (96-108); Cholesterol 215 mg/dL (<200); Estimated Glomerular Filt Rate > 60; HDL Cholesterol 37 mg/dL (>40); Potassium 3.9 mmol/L (3.3-5.1); Sodium 140 mmol/L (135-145); Total Protein 7.5 g/dL (6.5-8.0); Triglycerides 113 mg/dL (<150)
[2025-09-05 12:36] LABS: Folate 6.4 ng/mL (> or = 4.0); Vitamin B12 304 pg/mL (200-900)
[2025-09-05 12:43] LABS: Microalbum/Creatinine Ratio Ur 12.3 ug/mg cr (<30)
== END 2025-09-05 08:34 | disposition home or self-care (01) ==
LOC: HO.WFDLDS 08:33
PROVIDERS: Visit Provider Nurse Practitioner Family
DX: Z00.00 Encounter for general adult medical examination without abnormal findings (principal); Z13.1 Encounter for screening for diabetes mellitus; E78.00 Pure hypercholesterolemia, unspecified; Z68.43 Body mass index [BMI] 50.0-59.9, adult
CPT/HCPCS: 36415; 80053; 80061; 82043; 82306; 82570; 82607; 82746; 83036; 84443; 85027